=== PATIENT | male | born 1960 | race Caucasian/White ===

== ENCOUNTER 2017-11-28 12:30 | Inpatient (IN) | payer OTHER ==
[~2017-11-28] VITALS: Ht 177.8 cm; Wt 103.7 kg
[2017-11-28 13:13] LABS: BASOPHILS # (AUTO) 0.06 x10^3/uL (0-0.1); BASOPHILS % (AUTO) 1 % (0-1); EOSINOPHILS # (AUTO) 0.45 x10^3/uL (0-0.4); EOSINOPHILS % (AUTO) 6 % (1-7); LYMPHOCYTES # (AUTO) 1.93 x10^3/uL (1-3.4); LYMPHOCYTES % (AUTO) 25 % (22-44); MD NO; MEAN CORPUSCULAR HEMOGLOBIN 29.9 pg (27.5-34.5); MEAN CORPUSCULAR HGB CONC 33.8 g/dL (33.2-36.2); MEAN CORPUSCULAR VOLUME 88.3 fL (81-97); MEAN PLATELET VOLUME 7.9 fL (7.4-10.4); MONOCYTES # (AUTO) 0.56 x10^3/uL (0.2-0.8); MONOCYTES % (AUTO) 7 % (2-9); NEUTROPHILS # (AUTO) 4.76 x10^3/uL (1.8-6.8); NEUTROPHILS % (AUTO) 61 % (42-75); PLATELET COUNT 211 x10^3/uL (130-400); RED BLOOD COUNT 5.05 x10^6/uL (4.38-5.82)
[2017-11-28 13:25] LABS: ALBUMIN 3.5 g/dL (3.4-5.0); ANION GAP 5 mmol/L (5-15); CALCIUM 8.7 mg/dL (8.5-10.1); CHLORIDE 110 mmol/L (98-107); CREATININE 1.03 mg/dL (0.7-1.3)
[2017-11-28 13:29] LABS: TROPONIN I < 0.015 ng/mL (0.000-0.045)
[2017-11-28] MEDS ORDERED: ASPI-515 PO (14:35)
[2017-11-28] MEDS ORDERED: TRAZ-136 PO (14:35)
[2017-11-28] MEDS ORDERED: LISI2.5T PO (14:35)
[2017-11-28] MEDS ORDERED: ATOR10TA9 PO (14:35)
[2017-11-28] MEDS ORDERED: PROP60CA PO (14:35)
[2017-11-28] MEDS ORDERED: GABA300C10 PO (14:35)
[2017-11-28] MEDS ORDERED: DULO20CA45 PO (14:35)
[2017-11-28] MEDS ORDERED: ACETAMINOPHEN 325 MG TABLET PO PRN (15:00)
[2017-11-28] MEDS ORDERED: ONDANSETRON 2MG/ML, 2ML IVPush PRN (15:00)
[2017-11-28] MEDS ORDERED: DOCUSATE 100 MG CAPSULE PO PRN (15:00)
[2017-11-28] MEDS ORDERED: BISACODYL 10 MG SUPP PR PRN (15:00)
[2017-11-28] MEDS ORDERED: LABETALOL 5MG/ML, 20ML IVPush PRN (15:00)
[2017-11-28] MEDS ORDERED: METHOCARBAMOL 500 MG TABLET PO PRN (15:00)
[2017-11-28] MEDS ORDERED: PROMETHAZINE 25 MG/ML, 1ML IM PRN (15:00)
[2017-11-28] MEDS ORDERED: ONDANSETRON ODT 4 MG PO PRN (15:00)
[2017-11-28] MEDS ORDERED: GABAPENTIN 300 MG CAPSULE PO PRN (15:00)
[2017-11-28] MEDS ORDERED: hydrALAzine 20 MG/ML, 1ML IVPush PRN (15:00)
[2017-11-28] MEDS ORDERED: POLYETHYLENE GLYCOL 17 GM PACKET PO PRN (15:00)
[2017-11-28 15:32] LABS: HEMOGLOBIN A1C 5.8 % (4.2-6.3)
[2017-11-28 15:38] LABS: FREE T4 (FREE THYROXINE) 0.86 ng/dL (0.76-1.46); THYROID STIMULATING HORMONE 1.11 mIU/L (0.358-3.740)
[2017-11-28 17:06] VITALS: BP 143/84
[2017-11-28] MEDS: HEPARIN 5,000 UNITS/ML, 1ML SQ SCH (17:52)
[2017-11-28 18:08] VITALS: BP 143/84
[2017-11-28 18:58] VITALS: BP 12/76
[2017-11-28] MEDS ORDERED: PRAZ2CAP2 PO (19:35)
[2017-11-28] MEDS ORDERED: DULO60CA55 PO (19:35)
[2017-11-28] MEDS ORDERED: PROPRANOLOL 60 MG CAP.SA.24H PO SCH (21:00)
[2017-11-28] MEDS ORDERED: PRAZOSIN 2 MG CAPSULE PO SCH (21:00)
[2017-11-28] MEDS ORDERED: TRAZODONE 50MG TABLET PO SCH (21:00)
[2017-11-28] MEDS ORDERED: GABAPENTIN 300 MG CAPSULE PO SCH (21:00)
[2017-11-28] MEDS ORDERED: DULOXETINE 20 MG CAPSULE.DR PO SCH (21:00)
[2017-11-28] MEDS ORDERED: ATORVASTATIN 10 MG TABLET PO SCH (21:00)
[2017-11-28] MEDS ORDERED: TEMPLATE NON-FORMULARY MED. (Atorvastatin Calcium** 10 MG) PO SCH (21:00)
[2017-11-28] MEDS ORDERED: DULOXETINE 30 MG CAPSULE.DR PO SCH (21:00)
[2017-11-28 21:30] VITALS: BP 133/78
[2017-11-28] MEDS: LISINOPRIL 5 MG TABLET PO SCH (21:39)
[2017-11-28] MEDS ORDERED: BUTALB/APAP/CAFFEINE 50MG/325MG/40MG PO PRN (22:00)
[2017-11-29] MEDS: HEPARIN 5,000 UNITS/ML, 1ML SQ SCH ×2 (01:12→09:31)
[2017-11-29 01:18] VITALS: BP 123/77
[2017-11-29 06:10] LABS: BASOPHILS # (AUTO) 0.03 x10^3/uL (0-0.1); BASOPHILS % (AUTO) 1 % (0-1); EOSINOPHILS # (AUTO) 0.43 x10^3/uL (0-0.4); EOSINOPHILS % (AUTO) 8 % (1-7); LYMPHOCYTES # (AUTO) 2.05 x10^3/uL (1-3.4); LYMPHOCYTES % (AUTO) 36 % (22-44); MD NO; MEAN CORPUSCULAR HEMOGLOBIN 30.2 pg (27.5-34.5); MEAN CORPUSCULAR HGB CONC 33.8 g/dL (33.2-36.2); MEAN CORPUSCULAR VOLUME 89.3 fL (81-97); MEAN PLATELET VOLUME 7.9 fL (7.4-10.4); MONOCYTES # (AUTO) 0.39 x10^3/uL (0.2-0.8); MONOCYTES % (AUTO) 7 % (2-9); NEUTROPHILS # (AUTO) 2.81 x10^3/uL (1.8-6.8); NEUTROPHILS % (AUTO) 49 % (42-75); PLATELET COUNT 179 x10^3/uL (130-400); RED BLOOD COUNT 4.96 x10^6/uL (4.38-5.82); RED CELL DISTRIBUTION WIDTH 13.9 % (9.4-14.8)
[2017-11-29 06:17] LABS: CHLORIDE 108 mmol/L (98-107)
[2017-11-29 06:25] LABS: ALANINE AMINOTRANSFERASE 37 U/L (12-78); ALBUMIN 3.2 g/dL (3.4-5.0); ALKALINE PHOSPHATASE 135 U/L (45-117); ANION GAP 7 mmol/L (5-15); BILIRUBIN,TOTAL 1.6 mg/dL (0.2-1.0); CALCIUM 8.1 mg/dL (8.5-10.1); CHOL/HDL RATIO 4.6; CHOLESTEROL, TOTAL 119 mg/dL (140-239); CREATININE 1.04 mg/dL (0.7-1.3); HDL CHOL % 22 % (26-37); HDL CHOLESTEROL (DIRECT) 26 mg/dL (40-60); LDL CHOLESTEROL,CALCULATED 47 mg/dL (54-169); LDL/HDL RATIO 1.8 (0.5-3.0); TOTAL PROTEIN 6.4 g/dL (6.4-8.2); TRIGLYCERIDES 232 mg/dL (50-200); VLDL CHOLESTEROL 46 mg/dL (0-25)
[2017-11-29 09:00] VITALS: BP 116/76
[2017-11-29] MEDS ORDERED: ASPIRIN 81 MG TABLET EC PO SCH (09:00)
[2017-11-29] MEDS: LISINOPRIL 5 MG TABLET PO SCH (09:31)
[2017-11-29 09:34] LABS: MICROSCOPIC NOT IND
[2017-11-29 10:02] LABS: CULTURE INDICATED? NO
[2017-11-29] MEDS ORDERED: METH500T97 PO (12:47)
[2017-11-29 13:32] VITALS: BP 126/84
[2017-11-29] MEDS ORDERED: PROPRANOLOL 60 MG CAP.SA.24H PO SCH (21:00)
== END 2017-11-29 15:40 | disposition home or self-care (01) | DRG 552 ==
LOC: ED 13:59 → EDIP 14:00 → 4EST 16:52 → DCLOUNGE 11-29 15:29
PROVIDERS: ADMIT Internal Medicine; ATTEND Internal Medicine
DX: M48.02 Spinal stenosis, cervical region (principal); M47.22 Other spondylosis with radiculopathy, cervical region; E53.8 Deficiency of other specified B group vitamins; E78.5 Hyperlipidemia, unspecified; E55.9 Vitamin D deficiency, unspecified; F32.9 Major depressive disorder, single episode, unspecified; F43.10 Post-traumatic stress disorder, unspecified; G43.909 Migraine, unspecified, not intractable, without status migrainosus; G89.29 Other chronic pain; I10 Essential (primary) hypertension; Z87.81 Personal history of (healed) traumatic fracture; G62.9 Polyneuropathy, unspecified
CPT/HCPCS: 36415; 70450; 70551; 71045; 72141; 80048; 80053; 80061; 81003; 82040; 82306; 82607; 83036; 83735; 84439; 84443; 84484; 85025; 93005; 99285; G0378; J1644